=== PATIENT | female | born 1980 | race African-American/Black ===

== ENCOUNTER 2016-04-21 17:08 | Emergency (ER) | payer OTHER | END 2016-04-21 20:26 | LOC: TRA 17:08 → EDBD 17:08 → TRA 17:08 | PROC: 5A12012 Performance of Cardiac Output, Single, Manual (ICD-10-PCS; principal; 2016-04-21) | DX: S31.000A Unspecified open wound of lower back and pelvis without penetration into retroperitoneum, initial encounter (principal); I46.9 Cardiac arrest, cause unspecified; X95.9XXA Assault by unspecified firearm discharge, initial encounter; Y07.9 Unspecified perpetrator of maltreatment and neglect | CPT/HCPCS: 71010; 74000; 80048; 81003; 82150; 83690; 84702; 85025; 86850; 86900; 86901; 92950; 99281; 99285; G0480 ==